=== PATIENT | male | born 2000 ===

== ENCOUNTER 2025-03-04 12:13 | Emergency (ER) | payer BC, OTHER, SELFPAY ==
[2025-03-04 12:16] VITALS: BP 162/70; PULSE 113; RESP 25; TEMP 36.3; O2SAT 100; BMI 24.4
--- NOTE | 2025-03-04 12:17 | ED_ITS ---
HPI - General Adult General Chief complaint: Dizziness Stated complaint: needs meds Related Data Allergies Allergy/AdvReac Type Severity Reaction Status Date / Time No Known Allergies Allergy Verified 03/04/25 12:22 [facility] Social History Social History Advance Directives: No Advance Directives Information Provided: No Do you have a plan to hurt others: No Plan Physical Exam ED Vital Signs: BMI result Body Mass Index 24.4 Course Course Course Narrative: RME, this is a rapid medical exam performed by Tab Escamilla please refer to primary provider for complete H&P- 24 year old male presents for evaluation of starvation ketoacidosis. He reports that he has an eating disorder and has not been eating. He did have something to eat yesterday. He reports fruity breath and body aches. He is not a diabetic. He is status post Mila en y gastic bypass Medical Decision Making Lab Data 03/04/25 12:32 03/04/25 12:32 Labs: Lab Results 03/04/25 03/04/25 03/04/25 Range/Units 12:26 12:32 12:37 WBC 9.9 (4.8-10.8) X10*3/uL RBC 6.11 H (4.60-5.80) X10*6/uL Hgb 15.7 (14.0-18.0) g/dl Hct 47.2 (42.0-52.0) % MCV 77.3 L (80.0-98.0) fL MCH 25.7 L (27.0-33.0) pg MCHC 33.3 (31.0-36.0) g/dl RDW 14.7 (11.0-16.0) % Plt Count 366 (160-400) X10*3/uL MPV 9.0 L (9.4-12.4) fL Immature Gran % (Auto) Cancelled Neut % (Auto) Cancelled Lymph % (Auto) Cancelled Leon % (Auto) Cancelled Eos % (Auto) Cancelled Baso % (Auto) Cancelled Lymph # (Auto) Cancelled Leon # (Auto) Cancelled Eos # (Auto) Cancelled Baso # (Auto) Cancelled Abs Immat Gran (auto) Cancelled Absolute Neuts (auto) Cancelled Absolute Nucleated RBC 0.000 (0.0-0.012) X10*3/uL Nucleated RBC % (auto) 0.0 (0.0-0.2) /100WBC Neutrophils % (Manual) 46 (45-73) % Band Neutrophils % 0 L (3-5) % Lymphocytes % (Manual) 23 (20-40) % Atypical Lymphs % (Man) 13 H (0-6) % Monocytes % (Manual) 12 H (2-11) % Eosinophils % (Manual) 3 (0-4) % Basophils % (Manual) 3 H (0-2) % Abs Neuts (Manual) 4.6 (2.0-8.3) X10*3/uL Lymphocytes # (Manual) 2.3 (1.2-4.9) X10*3/uL Atyp Lymphs # (Manual) 1.3 x10*3/uL Monocytes # (Manual) 1.2 (0.1-1.2) X10*3/uL Eosinophils # (Manual) 0.3 (0.0-0.4) X10*3/uL Basophils # (Manual) 0.3 H (0.0-0.2) X10*3/uL Smudge Cells PRESENT Platelet Estimate NORMAL (NORMAL) Plt Morphology Comment NORMAL RBC Morphology NORMAL Smear Path Review SEE NOTE VBG pH 7.41 (7.32-7.43) VBG pCO2 33 mmHg VBG pO2 45 mmHg VBG HCO3 21 L (22-26) mmol/L VBG O2 Saturation 70.0 % VBG Base Excess -2.0 mmol/L Sodium 142 (135-145) mmol/L Potassium 4.1 (3.3-5.1) mmol/L Chloride 111 H (96-108) mmol/L Carbon Dioxide 24 (22-29) mmol/L Anion Gap 11 L (12-20) BUN 14 (9-16) mg/dL Creatinine 1.05 (0.5-1.4) mg/dL Estim Creat Clear Calc 126.1 Estimated GFR > 60 POC Glucose 102 (60-115) mg/dL Random Glucose 91 (60-115) mg/dL Calcium 8.5 (8.4-10.2) mg/dL Magnesium 2.4 (1.6-2.6) mg/dL Total Bilirubin 0.3 (0.0-1.0) mg/dL AST 59 H (5-37) U/L ALT 99 H (0-40) U/L Alkaline Phosphatase 71 (39-117) U/L Total Creatine Kinase 114 (38-174) U/L Total Protein 6.8 (6.5-8.0) g/dL Albumin 4.2 (3.5-5.0) g/dL Lipase 46 (8-78) U/L Urine Color Urine Appearance Urine pH (5.0-9.0) Ur Specific [place] (1.005-1.025) Urine Protein (Neg-Trace) mg/dL Urine Glucose (UA) (Negative) mg/dL Urine Ketones (Negative) mg/dL Urine Blood (Negative) Urine Nitrite (Negative) Ur Leukocyte Esterase (Negative) Urine RBC (0-2) /HPF Urine WBC (0-5) /HPF Ur Squamous Epith Cells (0-2) /HPF Urine Bacteria (None Seen) Hyaline Casts (0-2) /LPF // Range/Units 12:44 WBC (4.8-10.8) X10*3/uL RBC (4.60-5.80) X10*6/uL Hgb (14.0-18.0) g/dl Hct (42.0-52.0) % MCV (80.0-98.0) fL MCH (27.0-33.0) pg MCHC (31.0-36.0) g/dl RDW (11.0-16.0) % Plt Count (160-400) X10*3/uL MPV (9.4-12.4) fL Immature Gran % (Auto) Neut % (Auto) Lymph % (Auto) Leon % (Auto) Eos % (Auto) Baso % (Auto) Lymph # (Auto) Leon # (Auto) Eos # (Auto) Baso # (Auto) Abs Immat Gran (auto) Absolute Neuts (auto) Absolute Nucleated RBC (0.0-0.012) X10*3/uL Nucleated RBC % (auto) (0.0-0.2) /100WBC Neutrophils % (Manual) (45-73) % Band Neutrophils % (3-5) % Lymphocytes % (Manual) (20-40) % Atypical Lymphs % (Man) (0-6) % Monocytes % (Manual) (2-11) % Eosinophils % (Manual) (0-4) % Basophils % (Manual) (0-2) % Abs Neuts (Manual) (2.0-8.3) X10*3/uL Lymphocytes # (Manual) (1.2-4.9) X10*3/uL Atyp Lymphs # (Manual) x10*3/uL Monocytes # (Manual) (0.1-1.2) X10*3/uL Eosinophils # (Manual) (0.0-0.4) X10*3/uL Basophils # (Manual) (0.0-0.2) X10*3/uL Smudge Cells Platelet Estimate (NORMAL) Plt Morphology Comment RBC Morphology Smear Path Review VBG pH (7.32-7.43) VBG pCO2 mmHg VBG pO2 mmHg VBG HCO3 (22-26) mmol/L VBG O2 Saturation % VBG Base Excess mmol/L Sodium (135-145) mmol/L Potassium (3.3-5.1) mmol/L Chloride (96-108) mmol/L Carbon Dioxide (22-29) mmol/L Anion Gap (12-20) BUN (9-16) mg/dL Creatinine (0.5-1.4) mg/dL Estim Creat Clear Calc Estimated GFR POC Glucose (60-115) mg/dL Random Glucose (60-115) mg/dL Calcium (8.4-10.2) mg/dL Magnesium (1.6-2.6) mg/dL Total Bilirubin (0.0-1.0) mg/dL AST (5-37) U/L ALT (0-40) U/L Alkaline Phosphatase (39-117) U/L Total Creatine Kinase (38-174) U/L Total Protein (6.5-8.0) g/dL Albumin (3.5-5.0) g/dL Lipase (8-78) U/L Urine Color Yellow Urine Appearance Clear Urine pH 6.5 (5.0-9.0) Ur Specific [place] 1.025 (1.005-1.025) Urine Protein Trace (Neg-Trace) mg/dL Urine Glucose (UA) Negative (Negative) mg/dL Urine Ketones Negative (Negative) mg/dL Urine Blood Negative (Negative) Urine Nitrite Negative (Negative) Ur Leukocyte Esterase Negative (Negative) Urine RBC 0-2 (0-2) /HPF Urine WBC 0-5 (0-5) /HPF Ur Squamous Epith Cells 0-2 (0-2) /HPF Urine Bacteria None Seen (None Seen) Hyaline Casts 0-2 (0-2) /LPF Discharge Plan Discharge Clinical Impression: Atypical eating disorder Patient Disposition: Left W/O Completing Treatment Discharge Date/Time: 03/04/25 14:16
--- NOTE | 2025-03-04 12:27 | ECG_ITS ---
Test Reason : weakness Blood Pressure : */* mmHG Vent. Rate : 108 BPM Atrial Rate : 108 BPM P-R Int : 130 ms QRS Dur : 86 ms QT Int : 302 ms P-R-T Axes : 89 104 59 degrees QTcB Int : 404 ms Sinus tachycardia Rightward axis Borderline ECG No previous ECGs available Referred By: Brian Escamilla Electronically Signed By: Nathanael Mehta
[2025-03-04 12:31] LABS: Glucose, Whole Blood 102 mg/dL (60-115)
[2025-03-04 12:41] LABS: Hematocrit 47.2 % (42.0-52.0); Hemoglobin 15.7 g/dl (14.0-18.0); Mean Corpuscular HGB Conc 33.3 g/dl (31.0-36.0); Mean Corpuscular Hemoglobin 25.7 pg (27.0-33.0); Mean Corpuscular Volume 77.3 fL (80.0-98.0); NRBC Abs Auto 0.000 X10*3/uL (0.0-0.012); NRBC Pct Auto 0.0 /100WBC (0.0-0.2); Platelet Count 366 X10*3/uL (160-400); Red Blood Count 6.11 X10*6/uL (4.60-5.80); White Blood Count 9.9 X10*3/uL (4.8-10.8)
[2025-03-04 12:43] LABS: VBG HCO3 21 mmol/L (22-26); VBG O2 % Saturation 70.0 %
[2025-03-04 12:44] LABS: Venous Blood Gas Refer to POC result
[2025-03-04 12:52] LABS: Appearance Urine Clear; Glucose Urine UA Negative (Negative); PH 6.5 (5.0-9.0); Specific Gravity - Urine 1.025 (1.005-1.025)
[2025-03-04 12:53] LABS: Alanine Aminotransferase 99 U/L (0-40); Albumin Level 4.2 g/dL (3.5-5.0); Alkaline Phosphatase 71 U/L (39-117); Anion Gap 11 (12-20); Aspartate Amino Transferase 59 U/L (5-37); Blood Urea Nitrogen 14 mg/dL (9-16); Calcium 8.5 mg/dL (8.4-10.2); Carbon Dioxide 24 mmol/L (22-29); Chloride 111 mmol/L (96-108); Creatinine Clr Calc Pharmacy 126.1; Estimated Glomerular Filt Rate > 60; Lipase 46 U/L (8-78); Magnesium 2.4 mg/dL (1.6-2.6); Potassium 4.1 mmol/L (3.3-5.1); Sodium 142 mmol/L (135-145); Total Protein 6.8 g/dL (6.5-8.0)
[2025-03-04 13:18] LABS: Atypical Lymph Absolute Manual 1.3 x10*3/uL; Atypical Lymphs Percent Manual 13 % (0-6); Band Neutrophils Percent 0 % (3-5); Basophils Abs Manual 0.3 X10*3/uL (0.0-0.2); Basophils Percent Manual 3 % (0-2); Eosinophils Absolute Manual 0.3 X10*3/uL (0.0-0.4); Eosinophils Percent Manual 3 % (0-4); Lymphocytes Absolute Manual 2.3 X10*3/uL (1.2-4.9); Lymphocytes Percent Manual 23 % (20-40); Monocytes Absolute Manual 1.2 X10*3/uL (0.1-1.2); Monocytes Percent Manual 12 % (2-11); Neutrophils Absolute Manual 4.6 X10*3/uL (2.0-8.3); Neutrophils Percent Manual 46 % (45-73)
[2025-03-04 13:19] LABS: RBC Morphology NORMAL; Smudge Cells PRESENT
--- NOTE | 2025-03-04 14:16 | PC.NURSE ---
Informed by [facility] reg staff patient had left in the dept, LWCT
--- OUTSIDE RECORDS SUMMARY | 2025-03-04 15:19 | XMS_ITS | Clinical Summary ---
Author Organization [facility] Address [address] [place] [phone] Phone Care Team Providers Care Test Borer Name Role Phone Jaida Ruggiero Primary Care Provider [phone] Allergies Active Allergy Reactions Criticality Noted Date Comments Lumateperone Unknown 06/11/2021 Medications brexpiprazole (REXULTI) 3 mg tablet Take 1 tablet (3 mg total) by mouth daily. Active multivitamin with minerals tablet Take 1 tablet by mouth 1 (one) time each day. Active pantoprazole (PROTONIX) 40 mg EC tablet Take 1 tablet (40 mg total) by mouth 1 (one) time each day before breakfast. Active amphetamine-dex troamphetamine XR (ADDERALL XR) 10 mg 24 hr capsule Take 1 capsule (10 mg total) by mouth 1 (one) time each day in the morning. Do not crush or chew. Active B complex-vitamin C-folic acid (DEMETRIO-JEANNETTE) 1-60-300 mg-mg-mcg tablet Take 1 tablet by mouth 1 (one) time each day with breakfast. Active ascorbic acid (VITAMIN C) 500 mg CR capsule Take 1 capsule (500 mg total) by mouth 1 (one) time each day. Active finasteride (PROPECIA) 1 mg tablet Take 1 tablet (1 mg total) by mouth 1 (one) time each day. Do not crush, chew, or split. Active Wegovy 1 mg/0.5 mL injection pen Inject 1 mg under the skin 1 (one) time per week. 11/18/2023 Active Active Problems Problem Noted Date Diagnosed Date Dehydration 11/23/2022 Urinary retention 11/14/2022 Morbid (severe) obesity due to excess calories ([facility] V24, [facility] V28) 11/13/2022 ADHD 11/13/2022 Anxiety 11/13/2022 Depression 11/13/2022 Fatty liver 11/13/2022 GERD (gastroesophageal reflux disease) Left ventricular enlargement 11/13/2022 Overview (11/13/2022): reversed. discharged from cardiology. Follows with PCP. Obstructive sleep apnea 11/13/2022 Schizophrenia ([facility] V24, [facility] V28) 023 Immunizations Name Administration Dates Next Due DTaP (Infanrix) 6wks to less than 7yo ,11/05/2001,01/16/2001,10/12,2000 H1N1 Inj Preservative Free 04/20/2009 Hep A, Unspecified 05/27/2007,04/02/2006 Hep B / HiB 07/14/2001,2000 Hep B, Unspecified 2000 HiB 2000 IPV Inactivated polio (Ipol) 6wks and older 07/23/2005,05/11/2001,2000,09/09 Influenza trivalent, 0.5mL, preservative free (Fluarix; FluLaval; Fluzone) ages 6mo and older (Afluria) 3 years and older 03/25/2013,05/26/2012,05/21/2010,05/20 Influenza trivalent, with pr eservative (Fluzone; Afluria) 6mo and older 04/02/2011,05/10/2003 Influenza, live, intranasal, trivalent (FluMist) 2yo to less than 50yo 04/30/2008,04/02/2006 MMR, measles mumps and rubel la Live (Priorix; M-M-R II) 12mo and older 07/23/2005,11/05/2001 Meningococcal Conjugate (Men veo) MenACWY 11yo to less than 19 yo 02/11/2012 Meningococcal MCV4P 12/23/2017,01/11/2012 Pneumococcal Conjugate Vacci ne, 7 Valent 11/05/2001,01/16/2001,2000,09/09 Tdap Tetanus diptheria acell ular pertussis (Boostrix; Adacel) 7yo and older 02/11/2012 Varicella live (Varivax) 12m o and older 10/20/2007,07/14/2001 Surgical History Surgery Date Site/Laterality Comments WISDOM TOOTH EXTRACTION UPPER GASTROINTESTINAL ENDOSCOPY GASTRIC BYPASS 11/22/2022 Medical History Medical History Date Comments Schizophrenia ([facility] V24, [facility] V28) Adhd DIMITRIS (obstructive sleep apnea) GERD (gastroesophageal reflux disease) Fatty liver H/O echocardiogram 12/2020 [facility]. LV EF 60 %, borderline LVH, PAP 41, no valvular disease Morbid (severe) obesity due to excess calories ([facility] V24, [facility] V28) Left ventricular enlargement rev ersed. discharged from cardiology. Follows with PCP. Anxiety Depression Family History Medical History Relation Name Comments No Known Problems Father Schizophrenia Mother Arrhythmia Sister Relation Name Status Comments Father Alive Mother Alive Sister Alive Social History Tobacco Use Types Packs/Day Years Used Date Smoking Tobacco: Former Cigarettes 0.3 5 0 09/09/2017 - 09/09/2022 Smokeless Tobacco: Former Tobacco Cessation:Counseling Given: Not Answered Alcohol Use Standard Drinks/Week Comments Yes 0 (1 standard drink = 0.6 oz pur e alcohol) 1 x month Interpersonal Safety Answer Date Record ed Physical Abuse 08/18/2023 Verbal Abuse 08/18/2023 Sex and Gender Information Value Date Recorded Sex Assigned at Male 11/13/2022 10:40 AM EDT Legal Sex Male 1:52 AM EST Gender Identity Male 11/13/2022 10:40 AM EDT Sexual Orientation Not on file Obstetrics History Last Filed Vital Signs Vital Sign Reading Time Taken Comments Blood Pressure 123/72 11/20/2024 1:55 AM EDT Pulse 123 11/20/2024 1:55 AM EDT Temperature 36.6 C (97.9 F) 11/20/2024 1:55 AM EDT Respiratory Rate 20 11/20/2024 1:55 AM EDT Oxygen Saturation 100% 07/10/2024 11:48 PM EST Inhaled Oxygen Concentration - - Weight 79.4 kg (175 lb) 11/20/2024 1:55 AM EDT Height 185.4 cm (6' 1 ) 11/20/2024 1:55 AM EDT Body Mass Index 23.09 11/20/2024 1:55 AM EDT Plan of Treatment Health Maintenance Due Date Last Done Comments Pneumococcal Vaccine: Pediatrics (0 to 5 Years) and At-Risk Patients (6 to 49 Years) (1 of 1 - PPSV23) 2006 11/05/2001, 01/16/2001, 2000, Additional history exists HPV Vaccines (1 - Male 3-dose series) 2015 DTaP,Tdap,and Td Vaccines (7 - Td or Tdap) 02/10/2022 02/11/2012, 07/23/2005, 11/05/2001, Additional history exists HIV Screening 05/23/2022 Hepatitis C Screening 05/23/2022 Social Influencers of Health Screening 05/23/2022 Depression Screening 06/09/2024 COVID-19 Vaccine ( season) 2025 12/22/2020, 10/13/2020 Influenza Vaccine (#1) 2025 3, 05/26/2012, 04/02/2011, Additional history exists Hypertension/CHF/CAD Annual BMP Blood Test 10/23/2025 10/23/2024, 08/26/2024, 07/10/2024, Additional history exists Cholesterol Screening (Lipid Panel) 01/11/2029 01/12/2024 HIB Vaccines Completed 07/14/2001, 11/2000, 2000 Hepatitis B Vaccines Completed 07/14/2001, 2000, 2000 IPV Vaccines Completed 07/23/2005, 08/2000, 2000, Additional history exists MMR Vaccines Completed 07/23/2005, 11/05/2001 Hepatitis A Vaccines Completed 05/27/2007, 04/02/20 Varicella Vaccines Completed 10/20/2007, 07/14/2001 Meningococcal ACWY Vaccine Completed 12/23, 02/11/2012, 01/11/2012 Meningococcal B Vaccine Aged Out No l onger eligible based on patient's age to complete this topic RSV Immunization Patients Under 20 months Aged Out No longer eligible based on patient's age to complete this topic Procedures Procedure Name Priority Date/Time Associated Diagnosis Comments COMPREHENSIVE METABOLIC PANEL STAT 07/10/2024 5:31 PM EST from Last 3 Months or Most Recently Relevant to Health Maintenance Results * (ABNORMAL) Comprehensive Metabolic Panel (CMP) (07/10/2024 5:31 PM EST) Sodium 139 136 - 145 mmol/L LAB CHEMISTRY METHOD 07/10/2024 6:41 PM EST [facility] Potassium 4.9 3.5 - 5.1 mmol/L LAB CHEMISTRY METHOD 07/10/2024 6:41 PM EST [facility] Chloride 105 98 - 107 mmol/L LAB CHEMISTRY METHOD 07/10/2024 6:41 PM [facility] CO2 28 20 - 31 mmol/L LAB CHEMISTRY METHOD 07/10/2024 6:41 PM [facility] Anion Gap 6 5 - 15 LAB CHEMISTRY METHOD 07/10/2024 6:41 PM [facility] Comment:The reference range has been updated per cissp recommendation. Glucose 88 70 - 99 mg/dL LAB CHEMISTRY METHOD 07/10/2024 6:41 PM [facility] BUN 20 9 - 23 mg/dL LAB CHEMISTRY METHOD 07/10/2024 6:41 PM [facility] Creatinine 0.86 0.70 - 1.30 mg/dL LAB CHEMISTRY METHOD 07/10/2024 6:41 PM [facility] eGFR 125 >=60 mL/min/1. 73m2 LAB CHEMISTRY METHOD 07/10/2024 6:41 PM [facility] Comment:Calculation based on the Chronic Kidney Disease Epidemiology Collaboration (CKD-EPI) equation refit without adjustment for race. BUN/Creatinine Ratio 23.3(H) 10.0 - 20.0 LAB CHEMISTRY METHOD 07/10/2024 6:41 PM [facility] Calcium 8.7 8.3 - 10.6 mg/dL LAB CHEMISTRY METHOD 07/10/2024 6:41 PM EST [facility] AST (SGOT) 36 13 - 40 unit/L LAB CHEMISTRY METHOD 07/10/2024 6:41 PM [facility] ALT (SGPT) 52(H) 9 - 40 unit/L LAB CHEMISTRY METHOD 07/10/2024 6:41 PM EST [facility] Alkaline Phosphatase 56 50 - 136 unit/L LAB CHEMISTRY METHOD 07/10/2024 6:41 PM EST [facility] Total Protein 6.9 5.7 - 8.2 g/dL LAB CHEMISTRY METHOD 07/10/2024 6:41 PM [facility] Globulin, Total 3.0 2.7 - 4.3 g/dL LAB CHEMISTRY METHOD 07/10/2024 6:41 PM EST [facility] A/G Ratio 1.3 LAB CHEMISTRY METHOD 07/10/2024 6:41 PM EST [facility] Total Bilirubin 0.3 0.0 - 1.0 mg/dL LAB CHEMISTRY METHOD 07/10/2024 6:41 PM [facility] Albumin 3.9 3.5 - 4.6 g/dL LAB CHEMISTRY METHOD 07/10/2024 6:41 PM EST [facility] Blood Venous blood specimen / Unknown Venipuncture / Unknown 07/10/2024 5:31 PM EST 07/10/2024 5:33 PM EST us [facility] BLOOD ORDERABLES Final Resul t [facility] [address] [place] [address], [place] [phone] from Last 3 Months or Most Recently Relevant to Health Maintenance Insurance [facility] Advance Directives * Full Code - Confirmed (Latest Code Status on File) Date Activated Date Inactivated Comments 11/23/2022 12:59 AM 11/23/2022 5:51 PM This code s tatus was ascertained in the following way: Code status discussion: discussion with patient To update the patient's code status, place a code status order. Do not modify or discontinue any currently active code status orders. * Full Code - Default Date Activated Date Inactivated Comments 11/13/2022 4:02 PM 11/15/2022 3:31 PM This is order is used when code status has not been discussed with the patient, or code status is otherwise unknown/unconfirmed To update the patient's code status, place a code status order. Do not modify or discontinue any currently active code status orders. * Full Code - Confirmed Date Activated Date Inactivated Comments 11/13/2022 10:19 AM 11/13/2022 4:02 PM This code sta tus was ascertained in the following way: Code status discussion: discussion with patient To update the patient's code status, place a code status order. Do not modify or discontinue any currently active code status orders. Care Teams Test Borer Relationship Specialty Start [place] [id number] [facility] [address] [place] [address] PCP - General Family Medicine 09/27/22
== END 2025-03-04 14:16 | disposition left against medical advice (07) ==
LOC: HO.ED 14:15
PROVIDERS: Physician Assistant; Emergency Provider Emergency Medicine
DX: F50.9 Eating disorder, unspecified (principal); Z68.24 Body mass index [BMI] 24.0-24.9, adult; Z53.21 Procedure and treatment not carried out due to patient leaving prior to being seen by health care provider
CPT/HCPCS: 36415; 80053; 81001; 82550; 82803; 82947; 83690; 83735; 85007; 85025; 85027; 93005; 99283

== ENCOUNTER → 2025-03-04 12:27 | Outpatient (BNV) | payer SELFPAY | PROVIDERS: Emergency Provider Emergency Medicine; Visit Provider Internal Medicine Cardiovascular Disease | DX: R00.0 Tachycardia, unspecified (principal) | CPT/HCPCS: 93010 ==